=== PATIENT | female | born 2005 | race Hispanic/Latino ===

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

== ENCOUNTER 2024-03-09 11:29 | Emergency (ER) | payer OTHER ==
--- NOTE | 2024-03-09 12:52 | RAD REPORT ---
EXAMINATION: CT CHEST WITHOUT CONTRAST CLINICAL INDICATION: BLUNT CHEST TRAUMA TECHNIQUE: Routine CT scan of the chest without intravenous contrast. One or more of the following do se reduction techniques were used: Automated exposure control, adjustment of the mA and/or kV according to patient size, and/or iterative reconstruction. Unless otherwise specified, incidental fi ndings do not require dedicated imaging follow-up. COMPARISON: No prior exam. FINDINGS: LOWER NECK: Visualized thyroid gland and soft tissues are normal. LUNGS: The lungs are clear. No evidence of airspace or interstitial process. No worrisome nodules. PLEURA: No pleural effusion. No pneumothorax. . MEDIASTINUM AND LYMPH NODES: No mediastinal mass or fluid collection. Normal size mediastinal, hilar, and axillary lymph nodes. OSSEOUS STRUCTURES AND CHEST WALL: There is mild anterior wedging of the anterior thoracic vertebra n oted, age indeterminate. UPPER ABDOMEN: No significant abnormalities. IMPRESSION: Mild anterior wedging of an upper thoracic vertebral bodies noted which could be a mild fracture, age indeterminate. Follow-up nonemergent MRI imaging would be recommended to better assess this finding. Examination limited by lack of IV contrast.
--- NOTE | 2024-03-09 13:15 | ER ---
Nurse's Notes [facility] Name: Yoshi Olivas Age: 18 yrs Sex: Female : 2005 Arrival Date: 03/09/2024 Time: 11:29 Bed 11 Private MD: Diagnosis: Wedge compression fracture of unspecified thoracic vertebra;Fall (on) (from) unspecified stairs and steps Presentation: 03/09 11:41 Chief complaint: Patient states: Fell last Thursday. Had upper back and chest pain since ll1 the fall. Fell again Thursday, buttocks pain from that fall. Coronavirus screen: Client denies travel out of the [place] in the last 14 days. At this time, the client does not indicate any symptoms associated with coronavirus-19. Ebola Screen: Patient denies travel to an Ebola-affected area in the 21 days before illness onset. Initial Sepsis Screen: Does the patient meet any 2 criteria? No. Patient's initial sepsis screen is negative. Does the patient have a suspected source of infection? No. Patient's initial sepsis screen is negative. Risk Assessment: Do you want to hurt yourself or someone else? Patient reports no desire to harm self or others. Onset of symptoms was March 01, 2024. 11:41 Method Of Arrival: Ambulatory ll1 11:41 Acuity: NILE 4 ll1 Triage Assessment: 11:43 General: Appears uncomfortable, Behavior is calm, cooperative, appropriate for age. ll1 Pain: Complains of pain in back, buttocks and chest Quality of pain is described as aching. Musculoskeletal: Reports pain in back, buttocks and chest. Injury Description: Bruise. Historical: - Allergies: 11:43 Azithromycin; ll1 - Home Meds: 11:43 None [Active]; ll1 - PMHx: 11:43 None; ll1 - PSHx: 11:43 None; ll1 - Immunization history:: Adult Immunizations up to date. - Infectious Disease History:: Denies. - Social history:: Smoking status: Patient denies any tobacco usage or history of. Screenin:42 [facility] ED Fall Risk Assessment (Adult) History of falling in the last 3 months, rs5 including since admission No falls in past 3 months (0 pts) Confusion or Disorientation No (0 pts) Intoxicated or Sedated No (0 pts) Impaired Gait No (0 pts) Mobility Assist Device Used No (0 pt) Altered Elimination No (0 pt) Score/Fall Risk Level 0 - 2 = Low Risk Oriented to surroundings, Maintained a safe environment. Abuse screen: Denies threats or abuse. Nutritional screening: No deficits noted. Tuberculosis screening: No symptoms or risk factors identified. Assessment: 11:40 General: Appears in no apparent distress. uncomfortable, Behavior is calm, cooperative. rs5 Pain: Complains of pain in back and chest Pain currently is 4 out of 10 on a pain scale. Quality of pain is described as aching, Is continuous. Neuro: Level of Consciousness is awake, alert, obeys commands, Oriented to person, place, time, situation. Cardiovascular: Patient's skin is warm and dry. Respiratory: Airway is patent Respiratory effort is even, unlabored, Respiratory pattern is regular, symmetrical. GI: Abdomen is round non-distended, Abd is soft and non tender X 4 quads. : No signs and/or symptoms were reported regarding the genitourinary system. EENT: No signs and/or symptoms were reported regarding the EENT system. Derm: Skin is intact, Skin is pink, warm \T\ dry. Musculoskeletal: Range of motion: intact in all extremities. Vital Signs: 11:41 BP 122 / 77; Pulse 85; Resp 16; Temp 97.9; Pulse Ox 100% on R/A; Weight 92.99 kg; ll1 Height 5 ft. 2 in. ; Pain 4/10; 13:30 BP 117 / 69; Pulse 70; Resp 17; Pulse Ox 99% on R/A; rs5 11:41 Body Mass Index 37.49 (92.99 kg, 157.48 cm) - Percentile 98.0 % ll1 11:41 Pain Scale: Adult ll1 ED Course: 11:32 Patient arrived in ED. mr 11:42 Patient has correct armband on for positive identification. Placed in gown. Bed in low rs5 position. Call light in reach. Side rails up X2. 11:42 No provider procedures requiring assistance completed. rs5 11:43 Triage completed. ll1 11:43 Arm band placed on Patient placed in an exam room, on a stretcher. ll1 11:49 Paolo Ennis MD is Attending Physician. bo1 12:44 CT Chest Wo Con In Process Unspecified. EDMS 13:20 Kuldeep Horowitz, RN is Primary Nurse. rs5 13:30 Provided Education on: discharge instructions . rs5 13:32 Patient did not have IV access during this emergency room visit. rs5 Administered Medications: No medications were administered Medication: 13:57 VIS not applicable for this client. rs5 Outcome: 13:15 Discharge ordered by . bo1 13:32 Discharged to home ambulatory, rs5 13:32 Condition: stable rs5 13:32 Discharge instructions given to patient, family, Instructed on discharge instructions, follow up and referral plans. Demonstrated understanding of instructions, follow-up care, 13:33 Patient left the ED. rs5 Signatures: Dispatcher [employer] EDGA MossDebbie, Reg Reg Tiago Eller, RN RN ll1 Kuldeep Horowitz, RN RN rs5 Paolo Ennis MD MD bo1 Corrections: (The following items were deleted from the chart) 13:58 12:45 BP 117 / 69; Pulse 70bpm; Resp 17bpm; Pulse Ox 99% RA; rs5 rs5 13:59 12:48 Provided Education on: discharge instructions . rs5 rs5
--- NOTE | 2024-03-09 13:15 | EDPHYS ---
Physician Documentation [facility] Name: Yoshi Olivas Age: 18 yrs Sex: Female : 2005 Arrival Date: 03/09/2024 Time: 11:29 Bed 11 Private MD: ED Physician Paolo Ennis HPI: 03/09 12:05 This 18 yrs old Female presents to ER via Ambulatory with complaints of Fall bo1 Injury, Back Pain, Chest Pain. 12:05 Details of fall: The patient fell from a height, down approximately 5 stairs, about 2 bo1 weeks ago. Onset: The symptoms/episode began/occurred suddenly. Associated injuries: The patient sustained injury to the chest, Upper back in between the shoulders. then another fall just two days ago forwards... last night pain was to the upper back/shoulders and the front of the chest. Historical: - Allergies: 11:43 Azithromycin; ll1 - Home Meds: 11:43 None [Active]; ll1 - PMHx: 11:43 None; ll1 - PSHx: 11:43 None; ll1 - Immunization history:: Adult Immunizations up to date. - Infectious Disease History:: Denies. - Social history:: Smoking status: Patient denies any tobacco usage or history of. ROS: 13:09 Constitutional: Negative for fever, chills, and weight loss bo1 13:09 Constitutional: Negative for weight loss, 13:09 Neck: Negative for pain with movement, 13:09 Cardiovascular: Positive for chest pain, Negative for palpitations, 13:09 Respiratory: Negative for cough, shortness of breath, 13:09 Back: Positive for injury or acute deformity, pain at rest, pain with movement, of the thoracic area, 13:09 MS/extremity: Negative for acute changes, injury or acute deformity, 13:09 Skin: Negative for rash, Exam: 13:11 Constitutional: This is a well developed, well nourished patient who is awake, alert, bo1 and in no acute distress. 13:11 Constitutional: The patient appears in no acute distress, alert, awake, comfortable, 13:11 Neck: External neck: is normal, no acute changes, bo1 13:11 Chest/axilla: Palpation: tenderness, that is mild, of the mid-sternal area, 13:11 Cardiovascular: Rate: normal, Rhythm: regular, Pulses: no pulse deficits are appreciated, 13:11 Respiratory: the patient does not display signs of respiratory distress, Respirations: normal, Breath sounds: are clear throughout, 13:11 Back: pain, that is mild, of the thoracic area, 13:11 Musculoskeletal/extremity: Extremities: all appear grossly normal, with no appreciated pain with palpation, 13:11 Skin: no rash present. 13:11 Neuro: Motor: is normal, Sensation: is normal, Vital Signs: 11:41 BP 122 / 77; Pulse 85; Resp 16; Temp 97.9; Pulse Ox 100% on R/A; Weight 92.99 kg; ll1 Height 5 ft. 2 in. ; Pain 4/10; 13:30 BP 117 / 69; Pulse 70; Resp 17; Pulse Ox 99% on R/A; rs5 11:41 Body Mass Index 37.49 (92.99 kg, 157.48 cm) - Percentile 98.0 % ll1 11:41 Pain Scale: Adult ll1 MDM: 11:49 Medical Screening Exam initiated bo1 13:13 Differential diagnosis: contusion, fracture, sprain, strain. Data reviewed: vital bo1 signs, radiologic studies, CT scan. ED course: NSAID PO as OP management and pt to see her PCP for further studies if desired. Conservative plan is still agreed upon. 03/09 12:09 Order name: CT Chest Wo Con; Complete Time: 12:56 bo1 Administered Medications: No medications were administered Disposition Summary: 03/09/24 13:15 Discharge Ordered Notes: Location: Home bo1 Problem: new bo1 Symptoms: are unchanged bo1 Condition: Stable bo1 Diagnosis - Wedge compression fracture of unspecified thoracic vertebra bo1 - Fall (on) (from) unspecified stairs and steps bo1 Followup: bo1 - With: Private Physician - When: Upon discharge from the Emergency Department - Reason: Recheck today's complaints, Continuance of care Discharge Instructions: - Discharge Summary Sheet bo1 - Spinal Compression Fracture bo1 Forms: - Medication Reconciliation Form bo1 - Antibiotic Education bo1 - Prescription Opioid Use bo1 - Patient Portal Instructions bo1 - Leadership Thank You Letter bo1 Prescriptions: - Ibuprofen 800 mg Oral Tablet - take 1 tablet ORAL route every 8 hours As needed take with food; 30 tablet; bo1 Refills: 0, Product Selection Permitted Signatures: Dispatcher [employer] Tiago Damico, RN RN ll1 Paolo Ennis MD MD bo1
[2024-03-09 14:00] VITALS: BP 122/77; TEMP 97.9; O2SAT 100
== END 2024-03-09 13:33 | disposition home or self-care (01) ==
LOC: ER 11:29
DX: S22.000A Wedge compression fracture of unspecified thoracic vertebra, initial encounter for closed fracture (principal); W10.8XXA Fall (on) (from) other stairs and steps, initial encounter
CPT/HCPCS: 71250; 99282